=== PATIENT | male | born 1985 | race Caucasian/White ===

== ENCOUNTER 2018-06-12 08:20 | Emergency (ER) | payer SELFPAY ==
[2018-06-12] MEDS ORDERED: Dexamethasone 4 mg/ml Vial ONE (09:38)
[2018-06-12] MEDS ORDERED: Bicillin LA 1.2 MILLION UNITS/2 ML SYRINGE ONE (09:38)
== END 2018-06-12 10:03 | disposition home or self-care (01) ==
LOC: ERS 08:20
DX: J02.0 Streptococcal pharyngitis (principal); J45.909 Unspecified asthma, uncomplicated; F17.210 Nicotine dependence, cigarettes, uncomplicated; Z71.6 Tobacco abuse counseling
CPT/HCPCS: 87081; 87430; 96372; 99406; J0561; J1100

== ENCOUNTER 2019-10-19 07:59 | Emergency (ER) | payer SELFPAY | END 2019-10-19 09:07 | disposition home or self-care (01) | LOC: ERS 07:59 | DX: J02.9 Acute pharyngitis, unspecified (principal); F17.210 Nicotine dependence, cigarettes, uncomplicated | CPT/HCPCS: 87081; 87430; 99281 ==

== ENCOUNTER 2019-10-24 17:51 | Emergency (ER) | payer SELFPAY ==
[~2019-10-24 17:51] MED LIST: Iopamidol-370 76% 500 ML 1 ML ONE
[2019-10-24] MEDS ORDERED: Clindamycin/D5W 900 mg/50 ml Premix Bag ONE (20:06)
[2019-10-24] MEDS ORDERED: Morphine 4 MG/ML VIAL ONE (20:06)
[2019-10-24] MEDS ORDERED: Dexamethasone 10 MG/ML VIAL ONE (20:06)
[2019-10-24] MEDS ORDERED: Ondansetron PF 4 MG/2 ML Vial ONE (20:06)
[2019-10-24 20:10] LABS: #Eosinphils 0.3 thou/uL (0.0-0.7); #Lymphocytes 2.5 thou/uL (1.20-3.40); #Monocytes 1.4 thou/uL (0.11-0.59); #Neutrophils 11.8 thou/uL (1.40-6.50); %Basophils 0.2 % (0.0-1.0); %Eosinophils 1.8 % (0.0-10.0); %Lymphocytes 15.7 % (21.0-51.0); %Monocytes 8.7 % (0.0-10.0); %Neutrophils 73.6 % (42.0-75.0); Hemoglobin 13.1 g/dL (14.0-18.0); Mean Corpuscular HGB CONC 34.3 g/dL (32.0-36.0); Mean Corpuscular Hemoglobin 32.4 pg (27.0-31.0); Mean Corpuscular Volume 94.4 fL (78.0-98.0); Mean Platelet Volume 7.3 fL (7.4-10.4); Platelet Count 239 thou/uL (130-400); RBC Distribution Width 10.8 % (11.5-14.5); Red Blood Cell (RBC) Count 4.05 mill/uL (4.70-6.10)
[2019-10-24 20:29] LABS: ALT (SGPT) 16 U/L (8-55); AST (SGOT) 17 U/L (5-34); Albumin 4.2 g/dL (3.5-5.0); Alkaline Phosphatase 81 U/L (40-110); Anion Gap 14 mmol/L (10-20); BUN (Urea Nitrogen) 6 mg/dL (8.9-20.6); Bilirubin, Total 0.4 mg/dL (0.2-1.2); Calc. Creatinine Clearance 0 mL/min (70-130); Calcium 9.5 mg/dL (7.8-10.44); Carbon Dioxide 27 mmol/L (22-29); Chloride 105 mmol/L (98-107); Estimated GFR-MDRD 84; Globulin 3.2 g/dL (2.4-3.5); Glucose 87 mg/dL (70-105); Protein, Total 7.4 g/dL (6.0-8.3); Sodium 142 mmol/L (136-145)
--- NOTE | 2019-10-24 21:02 | CT ---
CT Neck Soft Tissue W Con History: Peritonsillar abscess Comparison: None. Findings: Large left palatine tonsillar abscess measures 2.4 x 1.4 x 2.7 cm. There is some mass effec t upon the airway. Reactive cervical lymph nodes. Mild adjacent edema of the nasopharynx and oropharynx. No prevertebral collection of fluid. The internal carotid artery is patent. There is a posterior disc osteophyte complex at C5/C6 causing left sided moderate neural foraminal na rrowing. Impression: Large left palatine tonsillar abscess as described.
[2019-10-24] MEDS ORDERED: Ketorolac Tromethamine 30 MG/ML VIAL ONE (22:32)
[2019-10-24] MEDS ORDERED: Lidocaine 1% (PF) 30 ML VIAL ONE (22:32)
[2019-10-24] MEDS ORDERED: Lidocaine Viscous Sol 2% 15 ml UD Cup ONE (22:32)
[2019-10-24] MEDS ORDERED: Midazolam HCl 2 mg/2 ml Vial ONE (22:32)
== END 2019-10-24 22:00 | disposition home or self-care (01) ==
LOC: ERS 17:51
DX: J36 Peritonsillar abscess (principal); J45.909 Unspecified asthma, uncomplicated; F17.210 Nicotine dependence, cigarettes, uncomplicated
CPT/HCPCS: 70491; 80053; 85025; 87081; 87430; 96365; 96366; 96375; J1100; J1885; J2001; J2250; J2270; J2405; J3490; Q9967